=== PATIENT | female | born 1995 | race Caucasian/White ===

== ENCOUNTER 2016-08-13 12:42 | Inpatient (IN) | payer OTHER ==
[2016-08-13 13:34] VITALS: BMI 31.1
[2016-08-13 13:54] LABS: BASOPHIL 1.4 % (0-2.0); EOSINOPHIL 1.5 % (0-4.5); MCH 30.3 pg (25.7-33.7); MCHC 33.1 g/dl (32.0-36.0); MEAN CELL VOLUME 91.6 fl (80-96); MEAN PLT VOLUME 10.1 fl (7.5-11.1); NEUTROPHILS 55.8 % (42.8-82.8); PLATELET COUNT 132 K/MM3 (134-434); RDW 16.9 % (11.6-15.6); WHITE BLOOD COUNT 7.3 K/mm3 (4.0-10.0)
[2016-08-13 14:11] LABS: URINE APPEARANCE CLEAR; URINE BILIRUBIN NEGATIVE (NEGATIVE); URINE BLOOD NEGATIVE (NEGATIVE); URINE COLOR LTYELLOW; URINE GLUCOSE (UA) NEGATIVE (NEGATIVE); URINE KETONE NEGATIVE (NEGATIVE); URINE LEUK ESTERASE NEGATIVE (NEGATIVE); URINE NITRITE NEGATIVE (NEGATIVE); URINE UROBILINOGEN NEGATIVE E.U./dl (0.2-1.0)
[2016-08-13 14:13] LABS: INR 0.87 (0.82-1.09); PROTHROMBIN TIME (PATIENT) 9.5 SEC (9.98-11.88)
[2016-08-13 14:23] LABS: URINE PROTEIN 3+ (NEGATIVE)
[2016-08-13 14:24] LABS: ACTIVATED PTT 29.4 SECONDS (26.9-34.4); ALBUMIN 2.1 g/dl (3.4-5.0); ALK PHOS 230 U/L (45-117); ANION GAP 11 (8-16); BILIRUBIN,TOTAL 0.2 mg/dL (0.2-1.0); CALCIUM 8.7 mg/dL (8.5-10.1); CO2 20 mmol/L (21-32); CREATININE 0.8 mg/dL (0.55-1.02); GLUCOSE,RANDOM 94 mg/dL (74-106); SGOT/AST 23 U/L (15-37); SGPT/ALT 20 U/L (12-78); SGPT/ALT 21 U/L (12-78); TOT PROT 5.3 g/dl (6.4-8.2); URIC ACID 5.5 mg/dL (2.6-7.2)
[2016-08-13 15:10] LABS: URINE MUCUS RARE; URINE RBC 2 /hpf (0-3); URINE WBC 1 /hpf (3-5)
[2016-08-13] MEDS ORDERED: TUBERCULIN PPD 5 TU/0.1ML SYRINGE (IN PATIENT USE ONLY) ID ONE (17:15)
[2016-08-13] MEDS ORDERED: BUTORPHANOL TARTRATE 1 MG/ML VIAL IVPB ONE (17:56)
[2016-08-13] MEDS ORDERED: PROMETHAZINE HCL 25 MG/1 ML VIAL IVPUSH ONE (17:56)
--- NOTE | 2016-08-13 18:08 | HP ---
Past Medical History - Admission Chief Complaint: here for labor induction History of Present Illness: 20 yo with SIUP at 40 weeks gestation here for labor induction due to pre Eclampsia. Pt with elevated BPS in office and 3+ proteinuria. pt asymptomatic , denies RUQ pain, SURESH or changes in vision. complicated only by circumvillate placenta and now pre Eclampsia. +FM, no VB/LOF/CTx. Feels well today. 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 Weeks Gestation by Dates: 40 ...EDC by Anisho: 08/13/16 Heme/Onc: No: Anemia Infectious Disease: No: AIDS, HIV, MRSA, STD's Psych: No: Anxiety, Bipolar, Depression Endocrine: No: Diabetes Mellitus, Hyperthyroidism, Hypothyroidism - Past Surgical History Past Surgical History: Yes: None Hx Myomectomy: No Hx Transabdominal Cerclage: No - Alcohol/Substance Use Hx Alcohol Use: No History of Substance Use: reports: None - Social History Usual Living Arrangement: Yes: With Spouse ADL: Independent History of Recent Travel: No Home Medications - Allergies Allergies/Adverse Reactions: Allergies Allergy/AdvReac Type Severity Reaction Status Date / Time No Known Allergies Allergy Verified 08/13/16 13:38 - Home Medications Home Medications: Ambulatory Orders Tablet 1 tablet PO DAILY 08/13/16 Review of Systems - Review of Systems Constitutional: reports: No Symptoms Eyes: reports: No Symptoms HENT: reports: No Symptoms Neck: reports: No Symptoms Cardiovascular: reports: No Symptoms Respiratory: reports: No Symptoms Gastrointestinal: reports: No Symptoms Genitourinary: reports: No Symptoms Breasts: reports: No Symptoms Reported Musculoskeletal: reports: No Symptoms Integumentary: reports: No Symptoms Neurological: reports: No Symptoms Endocrine: reports: No Symptoms Hematology/Lymphatic: reports: No Symptoms Psychiatric: reports: No Symptoms Physical Exam - Maternity Vital Signs: Vital Signs Temperature 98.4 F 08/13/16 15:00 Pulse Rate 80 08/13/16 17:00 Respiratory Rate 20 08/13/16 17:00 Blood Pressure 136/82 08/13/16 17:00 O2 Sat by Pulse Oximetry (%) Constitutional: Yes: Well Nourished, No Distress, Calm Eyes: Yes: Conjunctiva Clear, EOM Intact HENT: Yes: Atraumatic, Normocephalic Neck: Yes: Supple, Trachea Midline Cardiovascular: Yes: Regular Rate and Rhythm Lungs: Clear to auscultation - Abdominal Exam/OB Fundal Height: 40 Number of Fetuses: Single Presentation: Vertex Contractions: No Heart Rate (range): 140 Category: I Accelerations: Uniform Decelerations: None - Vaginal Exam/OB Vaginal Bleediing: No Dilatation (cm): 1.5 Effacement (%): 50 Amniotic Membrane Status: Intact Presentation: Vertex/Position Station: -2 - Physical Exam Musculoskeletal: Yes: WNL Extremities: Yes: WNL Psychiatric: Yes: Alert, Oriented - Labs Lab Results: CBC, BMP 08/13/16 13:30 08/13/16 13:30 Hemorrhage Risk Assessment - Risk Factors Medium Risk Factors: Yes: None High Risk Factors: Yes: None Risk Score: 1 Risk Level: Medium Risk Problem List - Problems (1) Pre-eclampsia Code(s): O14.90 - UNSPECIFIED PRE-ECLAMPSIA, UNSPECIFIED TRIMESTER Qualifiers : Trimester: third trimester Qualified Code(s): O14.93 - Unspecified pre-eclampsia, third trimester (2) Term Code(s): Z34.80 - ENCOUNTER FOR SUPRVSN OF NORMAL , UNSP TRIMESTER Assessment/Plan 20 y/o , SIUP at 40 weeks, pre Eclampsia, for labor induction - FHTs cat 1 - pre Eclampsia - BPS normal to mild range. Pt asymptomatic. Monitor BPs closely. No severe features, will start magnesium if becomes severe. - GBS negative - IOL, cervidil placed, remove in 12 hours and re evaluate for possible pitocin
[2016-08-13] MEDS ORDERED: DEXTROSE 5%-LACTATED RINGERS 500 ML IV ONE (23:50)
[2016-08-14] MEDS ORDERED: DEXTROSE 5%-LACTATED RINGERS 500 ML IV ONE (00:50)
[2016-08-14] MEDS: MISOPROSTOL 200 MCG TABLET NR SCH ×2 (02:27→11:26)
[2016-08-14] MEDS ORDERED: CARBOPROST TROMETHAMINE 250 MCG/ML AMPUL IM ONE (02:30)
[2016-08-14] MEDS ORDERED: DEXTROSE 5%-LACTATED RINGERS 1,000 ML IV SCH (02:50)
[2016-08-14] MEDS ORDERED: BENZOCAINE 28 GM HEMORRHOIDAL OINTMENT TP PRN (02:55)
[2016-08-14] MEDS ORDERED: BISACODYL 10 MG SUPP.RECT RC PRN (02:55)
[2016-08-14] MEDS ORDERED: ACETAMINOPHEN 325 MG TABLET (FP) PO PRN (02:55)
[2016-08-14] MEDS ORDERED: oxyCODONE HCL 5 MG TABLET PO PRN (02:55)
[2016-08-14] MEDS ORDERED: WITCH HAZEL 50% (TUCKS) 40 PAD/JAR PAD TP PRN (02:55)
[2016-08-14] MEDS ORDERED: BENZOCAINE 20% 57 GM BOTTLE TP PRN (02:55)
[2016-08-14] MEDS ORDERED: IBUPROFEN 600 MG TABLET (FP) PO PRN (02:55)
--- NOTE | 2016-08-14 02:55 | PN ---
Delivery - Delivery Vaginal Delivery: No Problems Type of Anesthesia: Local Episiotomy/Laceration: 2nd degree EBL (cc): 500 Delivery, Single - Stages of Labor Date of Delivery: 08/14/16 Time of Delivery: Date Placenta Delivered: 08/14/16 Time Placenta Delivered: Placenta: Yes: Spontaneous - Condition of Bicycle Repairman/Director Of Valuation Present: No Infant Gender: Female Position: Right, OA - 1 Minute Total Score: 9 5 Minutes Total Score: 9 - Feeding Plan Initial Plan: Exclusive throughout hospitalization Remarks - Remarks Remarks: Normal of baby girl from ROMELIA position anterior shoulder (left) delivered with ease along with remainder of cord clamped and cut, 3VC noted placenta delivered spontaneously and in tact 2nd degree repaired with 2-0 chromic suture Pt with uterine atony after delivery and EBL 500cc, post hemorrhage 1000 mcg of cytotec given MS at 0227 250mcg of Hemabate given IM at 0230 mom stable baby to nursery
[2016-08-14] MEDS ORDERED: D5W-LR W/ 20 UNITS OXYTOCIN 1,000 ML IV SCH (03:00)
--- NOTE | 2016-08-14 06:28 | HOSP ---
Addendum entered and electronically signed by Benedicto Hand RES 08/14/16 06:36 : with inn 5 to 10 min patient return to base line, more interactive. Vital signs stable exam with in normal limit , no neurological deficit OB/ technical associate present and will continue the care. Original Note: Subjective - Review of Symptoms Events since last encounter: nurse called rapid response for patient was going to bathroom and has near syncope, diaphoresis and bleeding per vaginum Patient delivered the babay 2;30 am NVD, patient seen and examined. Patient was sitting in bathroom, patient states that she feel weak. Patient was brought back to bed, IV fluid 1 L was given stat. Patent states she feel slight better but still weak. on exam chest ; b/l air entry present, no wheez, no crackels cvs s1s2 normal abdomen light tenderness in suprapubic area, extremities; peipharal edema present spo 98 % on room air pr 84 bp 134/90 plan ; probably due to vasovagal, postural hypotension, vs / intrapartum blood loss give IV fluid get stat cbc, bmp , lactic acid medical transcription radiology consult for bleeding monitor vitals monitor orthostatic vitals <Benedicto Hand - Last Filed: 08/14/16 06:30> - Review of Symptoms Events since last encounter: agree with note as above. Patient seen and examined by me. i was present throughout rapid response. <Ezra Pardo - Last Filed: 08/14/16 06:49> Physical Examination Vital Signs: Vital Signs Temperature 98.8 F 08/14/16 05:31 Pulse Rate 115 H 08/14/16 05:31 Respiratory Rate 18 08/14/16 05:31 Blood Pressure 112/77 08/14/16 05:31 O2 Sat by Pulse Oximetry (%) 98 08/14/16 05:38 Labs: CBC, BMP 08/13/16 13:30 08/13/16 13:30 <Benedicto Hand - Last Filed: 08/14/16 06:30> Vital Signs: Vital Signs Temperature 98.8 F 08/14/16 05:31 Pulse Rate 88 08/14/16 06:37 Respiratory Rate 18 08/14/16 06:15 Blood Pressure 129/76 08/14/16 06:37 O2 Sat by Pulse Oximetry (%) 98 08/14/16 05:38 <Ezra Pardo - Last Filed: 08/14/16 06:49> Visit type - Emergency Visit Emergency Visit: Yes ED Registration Date: 08/13/16 Care time: The patient presented to the Emergency Department on the above date and was hospitalized for further evaluation of their emergent condition. - New Patient This patient is new to me today: Yes Date on this admission: 08/14/16 - Critical Care Critical Care patient: No <Benedicto Hand - Last Filed: 08/14/16 06:30> - Critical Care Critical Care patient: Yes Total Critical Care Time (in minutes): 40 Critical Care Statement: The care of this patient involved high complexity decision making to prevent further life threatening deterioration of the patient 's condition and/or to evalute & treat vital organ system(s) failure or risk of failure. <Ezra Pardo - Last Filed: 08/14/16 06:49>
[2016-08-14 06:46] LABS: MCH 30.4 pg (25.7-33.7); MCHC 32.9 g/dl (32.0-36.0); MEAN CELL VOLUME 92.4 fl (80-96); MEAN PLT VOLUME 10.3 fl (7.5-11.1); PLATELET COUNT 138 K/MM3 (134-434); RDW 17.5 % (11.6-15.6)
[2016-08-14 07:04] LABS: CALCIUM 7.3 mg/dL (8.5-10.1); CREATININE 0.8 mg/dL (0.55-1.02)
[2016-08-14] MEDS: PRENATAL VITAMINS W/ FOLIC ACID TABLET (FP) PO SCH (11:19)
[2016-08-14 14:53] LABS: MCH 29.8 pg (25.7-33.7); MCHC 32.7 g/dl (32.0-36.0); MEAN CELL VOLUME 91.3 fl (80-96); MEAN PLT VOLUME 9.8 fl (7.5-11.1); PLATELET COUNT 109 K/MM3 (134-434); RDW 15.9 % (11.6-15.6)
[2016-08-14 15:44] LABS: PLATELET ESTIMATE DECREASED (NORMAL)
[2016-08-14] MEDS: CEFAZOLIN (PRE-DOCKED) 50 ML IVPB SCH ×2 (16:07→21:40)
[2016-08-15] MEDS: CEFAZOLIN (PRE-DOCKED) 50 ML IVPB SCH ×4 (02:46→21:15)
[2016-08-15 07:31] LABS: MCH 30.3 pg (25.7-33.7); MCHC 33.2 g/dl (32.0-36.0); MEAN CELL VOLUME 91.3 fl (80-96); MEAN PLT VOLUME 9.5 fl (7.5-11.1); PLATELET COUNT 111 K/MM3 (134-434); RDW 16.3 % (11.6-15.6); WHITE BLOOD COUNT 20.3 K/mm3 (4.0-10.0)
--- NOTE | 2016-08-15 08:02 | PN ---
Post Progress Note - Subjective Subjective: late entry from 08/14 at 6:30 am Pt underwent episode of near syncope and rapid response was called. BP was normal throughout event and patient never lost consciousness. See hospitalist note for full details of rapid response. Currently patient feeling improved, just tired. Some cramping pain, no other complaints. Denies SURESH/RUQ pain or changes in vision/spots in vision. Type of Delivery: Vital Signs: Vital Signs Temperature 98.7 F 08/15/16 02:00 Pulse Rate 83 08/15/16 02:00 Respiratory Rate 18 08/15/16 02:00 Blood Pressure 119/66 08/15/16 02:00 O2 Sat by Pulse Oximetry (%) 98 08/14/16 05:38 Breast Exam: Yes: Soft Uterus: Yes: Fundus below umbilicus Abdomen/GI: Yes: Abdomen soft, Passing flatus. No: Tender Lochia: Yes: Rubra Lochia, amount: Moderate Extremities: Yes: Calves non-tender Perineum: Yes: Laceration Activity: Ambulating (ambulating with assistane only due to near syncope) - Labs Labs: CBC WBC 20.3 K/mm3 (4.0-10.0) H 08/15/16 06:45 RBC 2.69 M/mm3 (3.60-5.2) L 08/15/16 06:45 Hgb 8.2 GM/dL (10.7-15.3) L 08/15/16 06:45 Hct 24.6 % (32.4-45.2) L 08/15/16 06:45 MCV 91.3 fl (80-96) 08/15/16 06:45 MCHC 33.2 g/dl (32.0-36.0) 08/15/16 06:45 RDW 16.3 % (11.6-15.6) H 08/15/16 06:45 Plt Count 111 K/MM3 (134-434) L 08/15/16 06:45 MPV 9.5 fl (7.5-11.1) 08/15/16 06:45 Neutrophils % Y 08/15/16 06:45 Lymphocytes % Y 08/15/16 06:45 Monocytes % 2.0 % (3.8-10.2) L 08/14/16 14:10 Eosinophils % 1.5 % (0-4.5) 08/13/16 13:30 Basophils % 1.4 % (0-2.0) 08/13/16 13:30 Differential Comment Manual diff done 08/14/16 14:10 Platelet Estimate Decreased (NORMAL) 08/14/16 14:10 Retic Count 2.24 % (0.5-1.5) H 08/13/16 13:30 Haptoglobin 49 mg/dL (34-200) 08/13/16 13:30 Problem List - Problems (1) Pre-eclampsia Code(s): O14.90 - UNSPECIFIED PRE-ECLAMPSIA, UNSPECIFIED TRIMESTER Qualifiers : Trimester: third trimester Qualified Code(s): O14.93 - Unspecified pre-eclampsia, third trimester (2) Term Code(s): Z34.80 - ENCOUNTER FOR SUPRVSN OF NORMAL , UNSP TRIMESTER (3) Near syncope Code(s): R55 - SYNCOPE AND COLLAPSE Assessment/Plan 20 y/o PPD 0 from normal with post hemorrhage - AFVSS - CBC/BMP pending 2/2 episode of near syncope - pt much improved at this time. Will keep on fall precautions. Advised to have regular diet this a.m. and continue IV fluids. May need blood 2/2 PPH and pt is symptomatic. - regular diet - PO pain meds - careful observation
[2016-08-15] MEDS: PRENATAL VITAMINS W/ FOLIC ACID TABLET (FP) PO SCH (09:00)
--- NOTE | 2016-08-15 09:15 | PN ---
Post Progress Note - Subjective Subjective: 20 yo status post vaginal delivery, seen and evaluated. Doing well after blood transfusion. Type of Delivery: Vital Signs: Vital Signs Temperature 98.7 F 08/15/16 02:00 Pulse Rate 83 08/15/16 02:00 Respiratory Rate 18 08/15/16 02:00 Blood Pressure 119/66 08/15/16 02:00 O2 Sat by Pulse Oximetry (%) 98 08/14/16 05:38 Breast Exam: Yes: Soft Uterus: Yes: Fundus Firm Abdomen/GI: Yes: Abdomen soft, Tolerating PO Lochia: Yes: Rubra Lochia, amount: Moderate Extremities: Yes: Calves non-tender Activity: Ambulating - Labs Labs: CBC WBC 20.3 K/mm3 (4.0-10.0) H 08/15/16 06:45 RBC 2.69 M/mm3 (3.60-5.2) L 08/15/16 06:45 Hgb 8.2 GM/dL (10.7-15.3) L 08/15/16 06:45 Hct 24.6 % (32.4-45.2) L 08/15/16 06:45 MCV 91.3 fl (80-96) 08/15/16 06:45 MCHC 33.2 g/dl (32.0-36.0) 08/15/16 06:45 RDW 16.3 % (11.6-15.6) H 08/15/16 06:45 Plt Count 111 K/MM3 (134-434) L 08/15/16 06:45 MPV 9.5 fl (7.5-11.1) 08/15/16 06:45 Neutrophils % Y 08/15/16 06:45 Lymphocytes % Y 08/15/16 06:45 Monocytes % 2.0 % (3.8-10.2) L 08/14/16 14:10 Eosinophils % 1.5 % (0-4.5) 08/13/16 13:30 Basophils % 1.4 % (0-2.0) 08/13/16 13:30 Differential Comment Manual diff done 08/14/16 14:10 Platelet Estimate Decreased (NORMAL) 08/14/16 14:10 Retic Count 2.24 % (0.5-1.5) H 08/13/16 13:30 Haptoglobin 49 mg/dL (34-200) 08/13/16 13:30 Problem List - Problems (1) Status post vaginal delivery Code(s): CEF1089 - Assessment/Plan Status post vaginal delivery Stable Ambulation Continue care
[2016-08-15] MEDS ORDERED: DIPHTH,PERTUSS(ACELL),TET 0.5 ML DISP.SYRIN IM ONE (10:00)
[2016-08-15 11:36] LABS: ANISOCYTOSIS 1+; HYPOCHROMIA 1+; PLATELET ESTIMATE DECREASED (NORMAL); POLYCHROMASIA 1+
[2016-08-15] MEDS ORDERED: SENNOSIDES/DOCUSATE COMBO (SENNA PLUS) TABLET (UD) PO PRN (22:00)
[2016-08-16] MEDS: CEFAZOLIN (PRE-DOCKED) 50 ML IVPB SCH ×2 (04:03→08:11)
--- NOTE | 2016-08-16 07:38 | PN ---
Post Progress Note - Subjective Subjective: s/p vaginal delivery condition is stable she offers no complaints s/p elevation in white cells responded well to iv ancef currently assymptomatic Type of Delivery: Vital Signs: Vital Signs Temperature 98.7 F 08/15/16 22:00 Pulse Rate 105 H 08/15/16 22:00 Respiratory Rate 18 08/15/16 22:00 Blood Pressure 130/65 08/15/16 22:00 O2 Sat by Pulse Oximetry (%) 98 08/14/16 05:38 Breast Exam: Yes: Soft Uterus: Yes: Fundus Firm Abdomen/GI: Yes: Abdomen soft Lochia: Yes: Serosa Lochia, amount: Moderate Extremities: Yes: Calves non-tender Perineum: Yes: Laceration Activity: Ambulating - Labs Labs: CBC WBC 20.3 K/mm3 (4.0-10.0) H 08/15/16 06:45 RBC 2.69 M/mm3 (3.60-5.2) L 08/15/16 06:45 Hgb 8.2 GM/dL (10.7-15.3) L 08/15/16 06:45 Hct 24.6 % (32.4-45.2) L 08/15/16 06:45 MCV 91.3 fl (80-96) 08/15/16 06:45 MCHC 33.2 g/dl (32.0-36.0) 08/15/16 06:45 RDW 16.3 % (11.6-15.6) H 08/15/16 06:45 Plt Count 111 K/MM3 (134-434) L 08/15/16 06:45 MPV 9.5 fl (7.5-11.1) 08/15/16 06:45 Neutrophils % 72.0 % (42.8-82.8) 08/15/16 06:45 Lymphocytes % 24.0 % (8-40) D 08/15/16 06:45 Monocytes % 4.0 % (3.8-10.2) D 08/15/16 06:45 Eosinophils % 1.5 % (0-4.5) 08/13/16 13:30 Basophils % 1.4 % (0-2.0) 08/13/16 13:30 Differential Comment Manual diff done 08/14/16 14:10 Platelet Estimate Decreased (NORMAL) 08/15/16 06:45 Platelet Comment No clumping noted 08/15/16 06:45 Polychromasia 1+ 08/15/16 06:45 Hypochromic-Microcytic 1+ 08/15/16 06:45 Anisocytosis 1+ 08/15/16 06:45 Retic Count 2.24 % (0.5-1.5) H 08/13/16 13:30 Haptoglobin 49 mg/dL (34-200) 08/13/16 13:30 Assessment/Plan condition stable plan to discharge home today f/u in 2 weeks.
[2016-08-16] MEDS: PRENATAL VITAMINS W/ FOLIC ACID TABLET (FP) PO SCH (09:00)
[2016-08-16 09:25] VITALS: BP 135/70; PULSE 100; TEMP 99
--- NOTE | 2016-10-17 16:34 | DS ---
DATE OF ADMISSION: 08/13/2016 DATE OF DISCHARGE: 08/16/2016 ADMITTING PHYSICIAN: Merle Coyne D.O. ADMITTING DIAGNOSIS: 40 weeks' gestation single intrauterine and preeclampsia. PROCEDURES DURING ADMISSION: Including induction of labor and normal spontaneous vaginal delivery on 08/14/2016. Please see delivery note for full details of vaginal delivery. CONSULTATIONS DURING ADMISSION: Including hospitalist consultation for an episode of syncope and diaphoresis. LABORATORY ON DISCHARGE: Included white blood cell count 20.3, hemoglobin at 8.2, platelet count of 111. VITAL SIGNS: Upon discharge were temperature 99, pulse rate 100, blood pressure 135/70, and respiratory rate of 20. BRIEF HOSPITAL COURSE: Patient is a 20-year-old female admitted to [facility] on August 13, 2016. Patient was a G1, P0 at 40+ weeks' gestation admitted for induction of labor secondary to elevated blood pressures and diagnosis of preeclampsia. A cervidil was placed on the evening of August 13, 2016, and the patient underwent a normal spontaneous vaginal delivery on August 14, 2016. Please see delivery note for full details of the delivery. On day zero, approximately 4 hours after delivery, the patient did have an episode of syncope, heavy vaginal bleeding, and diaphoresis. Hospitalist consult and rapid response was called. Patient was stabilized and evaluated. Workup showed anemia, hemoglobin 8.5; however, later in the day, the hemoglobin was checked and noted to be 9.1 and stable. Vaginal bleeding was stable throughout the remainder of the course of the patient's stay. Tatient was found to be stable and was discharged home on August 16, 2016, with normal blood pressures and stable hemoglobin. The patient was discharged home with instructions to take Tylenol and Motrin for pain. Instructions to call with any fever greater than 101.0, severe pain uncontrolled with medications, heavy bleeding, or any other concerns. The patient expressed understanding of her discharge instructions and was discharged home in stable condition on August 16, 2016. MERLE COYNE DO /[id number] MTDD
== END 2016-08-16 12:40 | disposition home or self-care (01) | DRG 372 ==
LOC: JLDR 12:42 → J3W 08-14 05:00
PROVIDERS: ADMIT Obstetrics & Gynecology; ATTEND Obstetrics & Gynecology
PROC: 3E0P7GC Introduction of Other Therapeutic Substance into Female Reproductive, Via Natural or Artificial Opening (ICD-10-PCS; 2016-08-13)
PROC: 10E0XZZ Delivery of Products of Conception, External Approach (ICD-10-PCS; principal; 2016-08-14)
PROC: 0KQM0ZZ Repair Perineum Muscle, Open Approach (ICD-10-PCS; 2016-08-14)
PROC: 0W8NXZZ Division of Female Perineum, External Approach (ICD-10-PCS; 2016-08-14)
PROC: 30233N1 Transfusion of Nonautologous Red Blood Cells into Peripheral Vein, Percutaneous Approach (ICD-10-PCS; 2016-08-14)
DX: O14.93 Unspecified pre-eclampsia, third trimester (principal); O70.1 Second degree perineal laceration during delivery; Z3A.40 40 weeks gestation of pregnancy; O72.1 Other immediate postpartum hemorrhage; O26.893 Other specified pregnancy related conditions, third trimester; R55 Syncope and collapse; R71.0 Precipitous drop in hematocrit; Z37.0 Single live birth
CPT/HCPCS: 36415; 36430; 59409; 80048; 80053; 81003; 81015; 82977; 83010; 83605; 84450; 84460; 84550; 85025; 85044; 85610; 85730; 86593; 86762; 86850; 86900; 86901; 86922; 87340; 90715; P9058